=== PATIENT | male | born 1975 | race Caucasian/White ===

== ENCOUNTER 2018-12-05 05:17 | Inpatient (IN) | payer OTHER ==
[2018-12-05] MEDS: LACTATED RINGER'S 1,000 ML IV ×4 (06:18→22:35)
[2018-12-05] MEDS: DEXAMETHASONE 1 MG TAB PO (06:19)
[2018-12-05] MEDS: GABAPENTIN 300 MG CAP PO ×2 (06:19→20:54)
[2018-12-05] MEDS: CEFAZOLIN 2 GM/50 ML (PMX) 50 ML IVPB (06:30)
[2018-12-05] MEDS ORDERED: BUPIVACAINE 0.5% (SDV) 30 ML, morphine SULFATE (PF) 8 MG, EPINEPHrine 0.3 MG, KETOROLAC... IRR (06:30)
[2018-12-05] MEDS: SOD CHLORIDE 0.9% 100 ML, TRANEXAMIC ACID 3,000 MG IRR (06:30)
[2018-12-05] MEDS: TRANEXAMIC ACID 1GM/100ML(PMX) 100 ML IVPB (06:30)
[2018-12-05] MEDS ORDERED: THROMBIN 5000 UNIT VIAL (06:53)
[2018-12-05] MEDS: POLYMYXIN/BACITRACIN 1L IRRIG (06:53)
[2018-12-05] MEDS ORDERED: TRANEXAMIC ACID 1GM/100ML(PMX) 100 ML ×3 (06:53→08:48)
[2018-12-05] MEDS ORDERED: CA CHLORIDE (GM) 10% 10 ML INJ (06:53)
[2018-12-05] MEDS ORDERED: PROPOFOL 100 ML (07:00)
[2018-12-05] MEDS ORDERED: DESFLURANE 15 MIN (07:00)
[2018-12-05] MEDS ORDERED: morphine SULFATE/PF (10 MG/10 ML) INJ (07:01)
[2018-12-05] MEDS ORDERED: MIDAZOLAM 1 MG/ML 2 ML INJ (07:01)
[2018-12-05] MEDS ORDERED: METOCLOPRAMIDE 10 MG INJ (07:25)
[2018-12-05] MEDS ORDERED: DEXAMETHASONE 4 MG/ML 5 ML INJ (07:25)
[2018-12-05] MEDS ORDERED: KETOROLAC 30 MG INJ (07:25)
[2018-12-05] MEDS ORDERED: ONDANSETRON 4 MG INJ (07:25)
[2018-12-05] MEDS ORDERED: CEFAZOLIN 1 GM INJ (07:25)
[2018-12-05] MEDS ORDERED: ROCURONIUM 50 MG INJ (07:25)
[2018-12-05] MEDS ORDERED: ROPIVACAINE 0.2% 20 ML VIAL (07:26)
[2018-12-05] MEDS ORDERED: morphine 2 MG INJ IV ×2 (08:00)
[2018-12-05] MEDS ORDERED: EPHEDrine 25 MG/5 ML SYG IV (08:00)
[2018-12-05] MEDS ORDERED: NALBUPHINE HCL (10 MG/1 ML) INJ IV (08:00)
[2018-12-05] MEDS ORDERED: FENTAnyl 50 MCG/ML VIAL IV ×3 (08:00)
[2018-12-05] MEDS ORDERED: HYDROmorphONE 0.5 MG/0.5 ML SYG IV ×2 (08:00)
[2018-12-05] MEDS ORDERED: METOCLOPRAMIDE 10 MG INJ IV (08:00)
[2018-12-05] MEDS ORDERED: OXYCODONE/ACETAMINOPHEN (5/325) TAB PO ×2 (08:00)
[2018-12-05] MEDS ORDERED: ONDANSETRON 4 MG INJ IV ×3 (08:00→09:30)
[2018-12-05] MEDS ORDERED: MEPERIDINE 25 MG INJ IV (08:00)
[2018-12-05] MEDS ORDERED: KETOROLAC 30 MG INJ IV (08:00)
[2018-12-05] MEDS ORDERED: hydrALAzine 20 MG INJ IV (08:00)
[2018-12-05] MEDS ORDERED: LABETALOL HCL 20MG INJ IV (08:00)
[2018-12-05] MEDS ORDERED: DIPHENHYDRAMINE 50 MG INJ IV ×2 (08:00→09:30)
[2018-12-05] MEDS ORDERED: NALOXONE (0.4 MG/ML) INJ IV (08:00)
[2018-12-05] MEDS ORDERED: HYDROmorphONE 1 MG/5 ML IV SYRINGE IV ×3 (08:00)
[2018-12-05] MEDS ORDERED: ACETAMINOPHEN 500 MG TAB PO (08:00)
[2018-12-05] MEDS ORDERED: SUGAMMADEX SODIUM 200 MG/2 ML VIAL IV (08:17)
[2018-12-05] MEDS ORDERED: PHENYLephrine (100 MCG/ML) 10ML SYG (08:18)
[2018-12-05] MEDS ORDERED: EPHEDrine 25 MG/5 ML SYG (08:18)
[2018-12-05] MEDS ORDERED: HETASTARCH 6% NACL 500 ML (08:18)
[2018-12-05] MEDS ORDERED: MAGNESIUM HYDROXIDE 30ML CUP PO (09:30)
[2018-12-05] MEDS ORDERED: oxyCODONE 5 MG TAB PO ×3 (09:30)
[2018-12-05] MEDS ORDERED: NACL 0.9% 3 ML SYG IV (09:30)
[2018-12-05] MEDS ORDERED: HYDROmorphONE 1 MG/ML SYG IV (09:30)
[2018-12-05] MEDS ORDERED: ZOLPIDEM 5 MG TAB PO (09:30)
[2018-12-05 09:59] LABS: ADD MAN DIFF? NO
[2018-12-05 10:02] LABS: WHITE BLOOD COUNT 9.2 10^3/ul (4.8-10.8)
[2018-12-05 10:02] LABS: BASOPHILS % 0.4 % (0.0-2.0); EOSINOPHILS # 0.1 10^3/ul (0.0-0.5); EOSINOPHILS % 1.4 % (0.0-7.0); HEMATOCRIT 37.1 % (42.0-52.0); HEMOGLOBIN 12.8 g/dl (14.0-18.0); MEAN CORPUSCULAR HEMOGLOBIN 31.8 pg (29.0-33.0); MEAN CORPUSCULAR HGB CONC 34.5 g/dl (32.0-37.0); MEAN CORPUSCULAR VOLUME 92.1 fl (82.0-101.0); MEAN PLATELET VOLUME 10.6 fl (7.4-10.4); MONOCYTE # 0.2 10^3/ul (0.3-0.9); MONOCYTES % 1.7 % (0.0-11.0); NEUTROPHIL # 7.7 10^3/ul (1.6-7.5); NEUTROPHILS % 84.2 % (39.0-77.0); PLATELET COUNT 219 10^3/UL (140-415); RED BLOOD COUNT 4.03 10^6/ul (4.70-6.10); RED CELL DISTRIBUTION WIDTH 11.9 % (11.5-14.5)
[2018-12-05] MEDS: ACETAMINOPHEN 1000MG/100ML IV 100 ML IVPB ×2 (10:18→18:11)
[2018-12-05] MEDS: DIPHENHYDRAMINE 50 MG INJ IV (10:18)
[2018-12-05] MEDS: CEFAZOLIN 1 GM/50 ML (PMX) 50 ML IVPB ×2 (11:59→19:43)
[2018-12-05] MEDS: DEXAMETHASONE 2 MG TAB PO ×3 (11:59→23:51)
[2018-12-05] MEDS: ATORVASTATIN 10 MG TAB PO (20:53)
[2018-12-05] MEDS: SENNA/DOCUSATE NA (8.6MG/50MG) TAB PO (20:54)
[2018-12-05] MEDS: AMLODIPINE 5 MG TAB PO (20:54)
[2018-12-06] MEDS: ACETAMINOPHEN 1000MG/100ML IV 100 ML IVPB (01:48)
[2018-12-06 05:00] LABS: ADD MAN DIFF? NO
[2018-12-06 05:03] LABS: WHITE BLOOD COUNT 13.3 10^3/ul (4.8-10.8)
[2018-12-06 05:03] LABS: BASOPHILS % 0.1 % (0.0-2.0); HEMATOCRIT 34.8 % (42.0-52.0); LYMPHOCYTES # 0.9 10^3/ul (0.8-2.9); LYMPHOCYTES % 6.8 % (15.0-51.0); MEAN CORPUSCULAR HEMOGLOBIN 31.8 pg (29.0-33.0); MEAN CORPUSCULAR HGB CONC 34.5 g/dl (32.0-37.0); MEAN CORPUSCULAR VOLUME 92.3 fl (82.0-101.0); MONOCYTE # 0.9 10^3/ul (0.3-0.9); MONOCYTES % 6.4 % (0.0-11.0); NEUTROPHIL # 11.5 10^3/ul (1.6-7.5); PLATELET COUNT 227 10^3/UL (140-415); RED BLOOD COUNT 3.77 10^6/ul (4.70-6.10); RED CELL DISTRIBUTION WIDTH 11.9 % (11.5-14.5)
[2018-12-06] MEDS: CEFAZOLIN 1 GM/50 ML (PMX) 50 ML IVPB (05:07)
[2018-12-06] MEDS: DEXAMETHASONE 2 MG TAB PO (05:12)
[2018-12-06] MEDS: LACTATED RINGER'S 1,000 ML IV (06:30)
[2018-12-06] MEDS: SPIRONOLACTONE 50 MG TAB PO (08:16)
[2018-12-06] MEDS: ASPIRIN (EC) 325 MG TAB PO (08:17)
[2018-12-06] MEDS: LOSARTAN 50 MG TAB PO (08:18)
[2018-12-06] MEDS: HYDROCHLOROTHIAZIDE 12.5 MG CAP PO (08:19)
[2018-12-06] MEDS: SENNA/DOCUSATE NA (8.6MG/50MG) TAB PO (08:19)
[2018-12-06] MEDS: HYDROCODONE/APAP (5/325) TAB PO ×2 (08:20→12:08)
[2018-12-07] MEDS ORDERED: MAGNESIUM HYDROXIDE 30ML CUP PO (21:00)
== END 2018-12-06 13:18 | disposition home or self-care (01) | DRG 468 ==
LOC: REC 05:17 → MS1 10:54
PROVIDERS: Orthopaedic Surgery
PROC: 0SRB04A Replacement of Left Hip Joint with Ceramic on Polyethylene Synthetic Substitute, Uncemented, Open Approach (ICD-10-PCS; principal; 2018-12-05 07:00)
PROC: 0SPB0JZ Removal of Synthetic Substitute from Left Hip Joint, Open Approach (ICD-10-PCS; 2018-12-05 07:00)
DX: M16.52 Unilateral post-traumatic osteoarthritis, left hip (principal); E78.2 Mixed hyperlipidemia; E11.9 Type 2 diabetes mellitus without complications; I10 Essential (primary) hypertension
CPT/HCPCS: 72170; 73530; 82962; 85025; 86999; 87086; 88304; 88311; 97116; 97161